=== PATIENT | male | born 1960 | race Caucasian/White ===

== ENCOUNTER 2017-06-12 14:25 | Emergency (ER) | payer OTHER ==
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
[2017-06-12 16:02] VITALS: BP 115/80
== END 2017-06-12 16:02 | disposition home or self-care (01) ==
DX: S60.221A Contusion of right hand, initial encounter (principal); V86.59XA Driver of other special all-terrain or other off-road motor vehicle injured in nontraffic accident, initial encounter; Y99.8 Other external cause status; Y93.89 Activity, other specified
CPT/HCPCS: L3807